=== PATIENT | male | born 1985 ===

== ENCOUNTER 2017-04-14 19:50 | Emergency (ER) | payer SELFPAY ==
[2017-04-14 20:38] VITALS: RESP 18
[2017-04-14 21:01] LABS: URINE BILIRUBIN NEGATIVE (NEGATIVE); URINE BLOOD 3+ (NEGATIVE); URINE CLARITY Clear (Clear); URINE COLOR Straw (YELLOW); URINE GLUCOSE (UA) NORMAL (Normal); URINE LEUKOCYTE ESTERASE NEG Leu/uL (Negative); URINE NITRATE NEGATIVE (NEGATIVE); URINE PROTEIN NEGATIVE (NEGATIVE); URINE UROBILINOGEN NORMAL mg/dL (0.2-1.0)
[2017-04-14] MEDS ORDERED: cefTRIAXone (Rocephin) 250 mg Inj IM STA (21:07)
[2017-04-14] MEDS ORDERED: Sodium Chloride 0.9% 1,000 ML IV ONE (21:37)
--- NOTE | 2017-04-14 21:49 | C.PDOC ---
History Of Present Illness 32 y/o male presents to the ED with complaints of 1 episode of dark colored urine today. Pt states urine was tea colored. Sine that episode, it has looked normal. He also reports occasional tingling sensation with urination. Denies penile or testicular pain, no discharge, fever, chills, abdominal pain, back pain or any other complaints. Time Seen by Provider: 04/14/17 20:33 Chief Complaint (Nursing): Male Genitourinary History Per: Patient History/Exam Limitations: no limitations Onset/Duration Of Symptoms: Hrs Severity: Mild Quality Of Discomfort: denies: "Pain" Associated Symptoms: Urinary Symptoms. denies: Fever, Chills Recent travel outside of the [place]: No Past Medical History Reviewed: Historical Data, Nursing Documentation, Vital Signs Vital Signs: Last Vital Signs Temp 98.1 F 04/14/17 22:56 Pulse 79 04/14/17 22:56 Resp 18 04/14/17 22:56 BP 124/76 04/14/17 22:56 Pulse Ox 99 04/14/17 22:56 Family History: States: Unknown Family Hx - Social History Hx Alcohol Use: No Hx Substance Use: No - Immunization History Hx Tetanus Toxoid Vaccination: No Hx Influenza Vaccination: No Hx Pneumococcal Vaccination: No Review Of Systems Except As Marked, All Systems Reviewed And Found Negative. Constitutional: Negative for: Fever, Chills Gastrointestinal: Negative for: Abdominal Pain Genitourinary: Positive for: Other (dark colored urine, tingling sensation with urination). Negative for: Penile Discharge, Scrotal Pain, Penile Pain Musculoskeletal: Negative for: Back Pain Physical Exam - Physical Exam Appears: Non-toxic, No Acute Distress Skin: Warm, Dry, No Rash Head: Atraumatic, Normacephalic Eye(s): bilateral: Normal Inspection, EOMI Nose: Normal Oral Mucosa: Moist Chest: Symmetrical Cardiovascular: Rhythm Regular Respiratory: Normal Breath Sounds, No Rales, No Rhonchi, No Wheezing Gastrointestinal/Abdominal: Normal Exam, Soft, No Tenderness Extremity: Normal ROM Extremity: Bilateral: Atraumatic Neurological/Psych: Oriented x3, Normal Speech ED Course And Treatment - Laboratory Results Result Diagrams: 04/14/17 22:06 04/14/17 22:06 O2 Sat by Pulse Oximetry: 98 (room air) Pulse Ox Interpretation: Normal Progress Note: Plan: labs, UA, IV fluids, PO challenge. Pt requests STD treatment. Rocephin and Zithro ordered. On re-evaluation, pt notes normal color urine. No pain .Afebrile. Discsused strict follow up with urology for further evaluation. Case discussed with Dr Aguirre, agreed upon plan and discharge. Disposition - Disposition Referrals: Non [facility] Provider, [Primary Care Provider] - Ramiro Jaquez MD [Staff Provider] - Disposition: HOME/ ROUTINE Disposition Time: 22:24 Condition: STABLE Additional Instructions: Follow up with PMD in 1-2 days. Return to ER if symptoms persist or worsen. Instructions: Acute Hematuria (ED) - Clinical Impression Clinical Impression: Hematuria - PA / SKIN SPECIALIST / Resident Statement MD/DO has reviewed & agrees with the documentation as recorded. - Scribe Statement The provider has reviewed the documentation as recorded by the Scribe Tejinder Morrell All medical record entries made by the Scribe were at my direction and personally dictated by me. I have reviewed the chart and agree that the record accurately reflects my personal performance of the history, physical exam, medical decision making, and the department course for this patient. I have also personally directed, reviewed, and agree with the discharge instructions and disposition.
[2017-04-14] MEDS ORDERED: cefTRIAXone (Rocephin) 250 mg Inj IVPB STA (21:59)
[2017-04-14 22:11] LABS: BASO % 0.5 % (0.0-2.0); EOS # 0.1 K/uL (0.0-0.7); EOS % 1.4 % (0.0-4.0); HEMOGLOBIN 15.5 g/dL (12.0-18.0); LYMPH # 2.4 K/uL (1.0-4.3); LYMPH % 27.2 % (20.0-40.0); MEAN CELL VOLUME 88.4 fL (80.0-94.0); MEAN CORPUSCULAR HEMOGLOBIN 29.4 pg (27.0-31.0); MEAN CORPUSCULAR HGB CONC 33.2 g/dL (33.0-37.0); MEAN PLATELET VOLUME 9.3 fL (7.2-11.7); MONO # 0.9 K/uL (0.0-0.8); MONO % 9.6 % (0.0-10.0); NEUT # 5.5 K/uL (1.8-7.0); NEUT % 61.3 % (50.0-75.0); RBC 5.27 Mil/uL (4.40-5.90); RED CELL DISTRIBUTION WIDTH 13.6 % (11.5-14.5); WHITE BLOOD COUNT 8.9 K/uL (4.8-10.8)
[2017-04-14] MEDS ORDERED: Sodium Chloride 0.9% 1,000 ML ONE (22:16)
[2017-04-14 22:18] LABS: ALBUMIN 4.4 g/dL (3.5-5.0)
[2017-04-14 22:21] LABS: ALB/GLOB RATIO 1.2 (1.0-2.1); AST/SGOT 43 U/L (17-59); GFR AFRICAN-AMERICAN > 60; GFR NON-AFRICAN AMERICAN > 60
[2017-04-14 22:22] LABS: ALT/SGPT 36 U/L (21-72); BLOOD UREA NITROGEN 15 mg/dL (9-20); CALCIUM 9.1 mg/dl (8.6-10.4)
[2017-04-14 22:30] LABS: CK-MB 0.42 ng/mL (0.0-3.38)
[2017-04-14 22:57] VITALS: BP 124/76; PULSE 79; TEMP 98.1
[2017-04-17 20:17] VITALS: O2SAT 98
== END 2017-04-14 22:58 | disposition home or self-care (01) ==
LOC: SUPCPDRO 19:50 → C.ER 19:50
DX: R31.9 Hematuria, unspecified (principal)
CPT/HCPCS: 80053; 81001; 82550; 82553; 85025; 87086; 87491; 87591; 96361; 96374; 99284; J0696; J7040